=== PATIENT | female | born 1960 | race Caucasian/White ===

== ENCOUNTER → 2020-03-21 | Outpatient (CLI) | payer OTHER | LOC: SJCVCIMAG 07:23 | PROVIDERS: ATTEND Internal Medicine Cardiovascular Disease | DX: I25.111 Atherosclerotic heart disease of native coronary artery with angina pectoris with documented spasm (principal); I10 Essential (primary) hypertension ==

== ENCOUNTER 2020-07-28 10:49 | Emergency (ER) | payer OTHER ==
[~2020-07-28] VITALS: Ht 160 cm; Wt 100.7 kg
[2020-07-28 11:50] VITALS: BP 182/84
[2020-07-28] MEDS ORDERED: NAPROSYN500 MG PO (11:56)
== END 2020-07-28 12:11 | disposition home or self-care (01) ==
LOC: ER 10:49
DX: M25.461 Effusion, right knee (principal); M23.91 Unspecified internal derangement of right knee